=== PATIENT | male | born 1950 | race Hispanic/Latino ===

== ENCOUNTER 2019-11-13 07:09 | Observation (INO) | payer MEDICARE, OTHER ==
[2019-11-08 12:08] LABS: BASOPHILS # (AUTO) 0.1 (0.0-0.1); EOSINOPHILS # (AUTO) 0.3 (0.0-0.4); EOSINOPHILS % 4.5 % (0.0-6.0); HEMATOCRIT 46.9 % (38.2-49.6); HEMOGLOBIN 15.4 g/dL (14.0-18.0); LYMPHOCYTES # (AUTO) 1.9 (1.0-3.2); MEAN CORPUSCULAR HEMOGLOBIN 29.3 pg (28-32); MEAN CORPUSCULAR HGB CONC 32.8 g/dL (31-35); MEAN CORPUSCULAR VOLUME 89.3 fL (81-99); MONOCYTES # (AUTO) 0.5 (0.2-0.8); NEUTROPHILS # (AUTO) 4.4 (2.1-6.9); NEUTROPHILS % 60.9 % (38.7-80.0); PLATELET COUNT 153 x10e3/uL (140-360); RED BLOOD COUNT 5.25 x10e6/uL (4.3-5.7); RED CELL DISTRIBUTION WIDTH 13.2 % (11.7-14.4)
--- NOTE | 2019-11-08 12:22 | Diagnostic Imaging Report ---
EXAMINATION: PA and lateral views of the chest. COMPARISON: None CLINICAL HISTORY: Preop prostate DISCUSSION: Lines/tubes: None. Lungs: The lungs are well inflated and clear. There is no evidence of pneumonia or pulmonary edema. Pleura: There is no pleural effusion or pneumothorax. Heart and mediastinum: Cardiomediastinal silhouette is unremarkable. Pulmonary vasculature is normal. Bones and soft tissues: No acute bony abnormalities. Age indeterminate compression deformity of an upper lumbar vertebral body. IMPRESSION: No acute cardiopulmonary abnormalities. Signed by: Dr. Pablo Coronado M.D. on 11/08/2019 12:19 PM
[2019-11-08 12:36] LABS: ALANINE AMINOTRANSFERASE 74 IU/L (0-55); ALBUMIN 3.9 g/dL (3.5-5.0); ALKALINE PHOSPHATASE 75 IU/L (40-150); ANION GAP 16.2 mmol/L (8-16); BLOOD UREA NITROGEN 21 mg/dL (7-26); BUN/CREATININE RATIO 19 (6-25); CALCIUM 9.9 mg/dL (8.4-10.2); CARBON DIOXIDE 23 mmol/L (22-29); CHLORIDE 104 mmol/L (98-107); CREATININE, SERUM 1.08 mg/dL (0.72-1.25); EST GLOMERULAR FILTRATION RATE > 60 ML/MIN (60-); GLUCOSE 187 mg/dL (74-118); POTASSIUM 4.2 mmol/L (3.5-5.1); SODIUM 139 mmol/L (136-145)
[~2019-11-13] VITALS: Ht 157.5 cm; Wt 63.0 kg
[~2019-11-13 07:09] MED LIST: SYNJARDY 12.5-1 EACH PO
[2019-11-13] MEDS ORDERED: CEFAZOLIN SOD 1 GM/NS 50ML 100 ML IV ONE (08:00)
[2019-11-13] MEDS ORDERED: INSULIN REGULAR, HUMAN 100 UNIT/1 ML 3ML VIAL ONE (08:37)
[2019-11-13] MEDS ORDERED: B&O 60MG R/S 60 MG SUPP PR ONE (09:20)
[2019-11-13] MEDS ORDERED: IOPAMIDOL 300MG/ML 50ML INFUS..BTL IV ONE (09:20)
[2019-11-13] MEDS ORDERED: SUGAMMADEX SODIUM 200 MG/2 ML VIAL IV ONE (10:30)
--- OUTSIDE RECORDS SUMMARY | 2019-11-13 11:07 | XMS REPORT | Clinical Summary ---
Author Author [facility] Organization [facility] Address Unknown Phone Unavailable Care Team Providers Care Home Care Physical Therapist Name Role Phone Brian Delarosa MD PCP Allergies No Known Allergies Medications End Date Status Medication Sig Dispensed Refills Start Date Active empagliflozin-metformin Take 1 tablet 30 each 11 (SYNJARDY XR) 12.5-1,000 by mouth 9 mg tablet, IR & ER, daily with biphasic 24hr breakfast. Active pioglitazone (ACTOS) 15 Take 1 tablet 2 MG tablet by mouth 9 daily. 09/11/2019 aspirin (ECOTRIN) 81 MG Take 1 tablet 90 tablet 1 enteric coated tablet (81 mg total) 9 by mouth daily. 12/10/2018 varenicline (CHANTIX ROMERO) Take 0.5 mg 53 tablet 0 0.5 mg (11)- 1 mg (42) one daily on 9 tablet days 1-2 and 0.5 mg twice daily on days 4-7. Then 1 mg twice daily for a total of 12 weeks. 09/20/2019 losartan (COZAAR) 25 MG Take 1 tablet 90 tablet 1 tablet (25 mg total) 9 by mouth daily. 09/20/2019 rosuvastatin (CRESTOR) 10 Take 1 tablet 90 tablet 1 MG tablet (10 mg total) 9 by mouth daily. 12/12/2018 Discontinued (Alternate ther apy) dulaglutide (TRULICITY) Inject 0.75 4 Syringe 11 0.75 mg/0.5 mL pen mg under the 9 injector skin once a week. 12/26/2018 amoxicillin-pot Take 1 tablet 20 tablet 0 12/17/19 1 clavulanate (AUGMENTIN) by mouth 2 9 875-125 mg per tablet (two) times a day for 10 days. Active Problems Problem Noted Date CKD (chronic kidney disease) stage 3, GFR 30-59 ml/mi n 09/12/2018 Type 2 diabetes mellitus with microalbuminuria, witho ut long-term current 09/12/2018 use of insulin Routine general medical examination at a health care facility 09/12/2018 Immunization due 09/11/2018 Microalbuminuria due to type 2 diabetes mellitus Tobacco dependence 09/11/2018 Overview: smoked for 50 years willing to accept t x Deafness in left ear 09/11/2018 Nocturnal enuresis 09/11/2018 Fatty liver 09/11/2018 Calculus of gallbladder without cholecystitis without obstruction 09/11/2018 Influenza vaccination up to date 05/07/2018 Constipation 12/28/2017 Chronic idiopathic anal pain 11/27/2017 Mixed hyperlipidemia 11/27/2017 Benign prostatic hyperplasia without lower urinary tr act symptoms 11/27/2017 Abdominal pain 11/27/2017 Smoker 11/27/2017 Overview: 45 year hx, refuses tx Family history of diabetes mellitus 11/27/2017 Family history of CVA 11/27/2017 Microalbuminuria 06/22/2017 BMI 24.0-24.9, adult 05/21/2017 Prostate cancer screening 05/21/2017 Pneumococcal vaccination administered at current visi t 05/21/2017 History of spinal fracture 05/21/2017 Overview: pt has been on disability 6 years; occu rred when he fell off of truck at the age of 14 but patient is poor histo juanito and unable to elaborate f; not work related Influenza vaccination administered at current visit 05/21/2017 Type 2 diabetes mellitus without complication, withou t long-term current 05/21/2017 use of insulin Overview: dx appx 2012; pt is poor historian; has seen eye doc; will get labs and old records and have him rtc Encounters Care Team Description Date Type Specialty Rajani Lopez MA Nocturnal enuresis (Primary Dx) 07/22/2019 Orders Only Family Medicine Brian Delarosa MD 05/19/2019 Refill Family Medicine Kelly Bravo NP 12/16/2018 Orders Only Family Medicine Kelly Bravo NP Nocturnal enuresis (Primary Dx) 12/12/2018 Office Visit Family Medicine after 11/12/2018 Immunizations Name Administration Dates Next Due FLUZONE HIGH-DOSE PF 09/11/2018, 05/21/2017 Pneumococcal Conjugate 09/11/2018 13-Valent Pneumococcal 05/21/2017 Polysaccharide Family History Medical History Relation Name Comments Cirrhosis Father Stroke Mother Relation Name Status Comments Father Mother Social History Date Tobacco Use Types Packs/Day Years Used Current Every Day Smoker Cigarettes 1 Smokeless Tobacco: Never Used Drinks/Week oz/Week Comments Alcohol Use Yes Sex Assigned at Date Recorded Not on file Industry Job Start Date Occupation Not on file Not on file Not on file Travel End Travel History Travel Start No recent travel history available. Last Filed Vital Signs Reading Time Taken Comments Vital Sign 111/68 12/12/2018 3:55 PM CDT Blood Pressure 79 12/12/2018 3:55 PM CDT Pulse 36.9 C (98.4 F) 12/12/2018 3:55 PM CDT Temperature - - Respiratory Rate 95% 12/12/2018 3:55 PM CDT Oxygen Saturation - - Inhaled Oxygen Concentration 65.1 kg (143 lb 9.6 oz) 12/12/2018 3:55 PM CDT Weight - - Height 25.04 09/20/2018 8:12 AM CDT Body Mass Index Plan of Treatment Health Maintenance Due Date Last Done Comments DIABETIC FOOT EXAM 1962 SHINGLES VACCINES (#1) 2002 INFLUENZA VACCINE 01/17/2020 09/11/2018, 04/23/2018, 05/21/2017 DIABETIC RETINAL EYE EXAM 12/09/2020 12/09/2018, 12/05/2017 65+ PNEUMOCOCCAL VACCINE 05/21/2022 09/11/2018, (2 of 2 - PPSV23) 05/21/2017 COLONOSCOPY SCREENING 08/04/2023 08/04/2013 Procedures Comments Procedure Name Priority Date/Time Associated Diag nosis URINALYSIS, COMPLETE, Routine 12/12/2018 WITH REFLEX TO CULTURE 4:37 PM CDT PROSTATE SPECIFIC ANTIGEN Routine 12/12/2018 Noct urnal enuresis 4:37 PM CDT URINE CULTURE Routine 12/12/2018 4:37 PM CDT after 11/12/2018 Results * URINALYSIS, COMPLETE, WITH REFLEX TO CULTURE (12/12/2018 4:37 PM CDT) Color, UA YELLOW YELLOW [facility] Appearance CLEAR CLEAR [facility] Specific 1.028 1.001 - 1.035 [facility] gravity, urine [facility] pH, urine 6.5 5.0 - 8.0 [facility] Glucose, urine 3+ (A) NEGATIVE [facility] Bilirubin, UA NEGATIVE NEGATIVE [facility] Ketones, UA NEGATIVE NEGATIVE [facility] Occult blood, TRACE (A) NEGATIVE [facility] Protein, UA NEGATIVE NEGATIVE [facility] Nitrite, UA POSITIVE (A) NEGATIVE [facility] Leukocyte 2+ (A) NEGATIVE [facility] esterase, [facility] WBC, UA > OR = 60 (A) < OR = 5 /HPF [facility] RBC, UA NONE SEEN < OR = 2 /HPF [facility] Squamous NONE SEEN < OR = 5 /HPF [facility] epithelial [facility]NOST[facility] cells, [facility]A [facility] Bacteria, UA MANY (A) NONE SEEN /HPF [facility] Hyaline casts, NONE SEEN NONE SEEN /LPF [facility] UA [facility] Reflex CULTURE INDICATED - RESULTS TO [facility] Specimen Resulting Agency Comment Performing Organization Information: Site ID: [id number] Name: [facility] Address: [address] [place] [id number] Director: Morelia Hernández Performing Organization Address City/State/Zipcode Ph one Number [facility] [address] [phone] * Urine culture (12/12/2018 4:37 PM CDT) Source URINE [facility] Status FINAL [facility] Bacterial ID SEE NOTE (A) [facility] isolate, Comment: DIAGNOSTICS sterility Greater than 100,000 CFU/mL of [place] N Escherichia coli (ESBL) E.coli (ESBL) INT JULIETA AMOX/CLAVULANATE S 8 AMPICILLIN R >=32 1 AMP/SULBACTAM S 8 CEFAZOLIN R >=64 2 CEFEPIME S 2 CEFTRIAXONE R >=64 CIPROFLOXACIN R >=4 GENTAMICIN S <=1 IMIPENEM S <=0.25 LEVOFLOXACIN R >=8 NITROFURANTOIN S <=16 PIP/TAZOBACTAM S <=4 TOBRAMYCIN S <=1 TRIMETHOPRIM/SULFA S <=20 ESBL RESULT: * 3 Legend: S = Susceptible I = Intermediate R = Resistant NS = Not susceptible * = Not tested NR = Not reported NN = See antimicrobic comments THERAPY COMMENTS Note 1: Extended spectrum beta-lactamase (ESBL) producing organisms demonstrate decreased activity with penicillins, cephalosporins and aztreonam. Note 2: For uncomplicated UTI caused by E. coli, K. pneumoniae or P. mirabilis: Cefazolin is susceptible if JULIETA <32 mcg/mL and predicts susceptible to the oral agents cefaclor, cefdinir, cefpodoxime, cefprozil, cefuroxime, cephalexin and loracarbef. Note 3: The organism has been confirmed as an ESBL assistant producer. Specimen Resulting Agency Comment Performing Organization Information: Site ID: [id number] Name: [facility] Address: [address] [place] [phone] Director: Morelia Hernández Performing Organization Address [facility] [place] [phone] * Prostate specific antigen (12/12/2018 4:37 PM CDT) PSA 1.4 < OR = 4.0 ng/mL [facility] Comment: DIAGNOSTICS The total PSA value from this [facility] assay system is standardized against the WHO standard. The test result will be approximately 20% lower when compared to the equimolar-standardized total PSA (Wilman Juvenal). Comparison of serial PSA results should be interpreted with this fact in mind. This test was performed using the Siemens chemiluminescent method. Values obtained from different assay methods cannot be used interchangeably. PSA levels, regardless of value, should not be interpreted as absolute evidence of the presence or absence of disease. Specimen Blood Resulting Agency Comment Performing Organization Information: Site ID: [id number] Name: [facility] Address: [address] [place] [id number] Director: Morelia Hernández Performing Organization Address [facility] one Number [facility] [place] [phone] after 11/12/2018 Insurance Type Payer Benefit Subscriber ID Effective Phone Address Plan / Dates Group O [employer] C[employer] xxxxxxxxxxx 2017- [employer] Present [facility] AD[facility] Advance Directives For more information, please contact: [phone] Patient Transportation Supervisor Explanation Type Date Recorded Advance Directives, 01/10/2016 12:05 PM Living Will and Medical Power of [place] Operator [id number] Advance Directives, 01/18/2016 10:45 AM Living Will and Medical Power of [place] Operator
--- OUTSIDE RECORDS SUMMARY | 2019-11-13 11:08 | XMS REPORT ---
Author Author [facility] t Organization [facility] Address [address] [place] [address] Phone Unavailable Care Team Providers Care Drapery Supervisor Name Role Phone [place] TEIXEIRA, Brian PCP Clifton LALA Attphys Unavailable John JOHN, Rajani Attphys Unavailable [place] TEIXEIRA, Brian Attphys Lawrence REGISTERED NURSE FIRST ASSISTANT, Binh Mendoza Attphys Payers Payer Name Policy Type Policy Number Effective Date Expiration Date Deisy nova [facility] ADVxxxxxx /18/2016-PresentO xxxxxxxxxxx 2017 00:00:00 Vincent Pendleton odist Problems Condition Name Condition Details Condition Category Status Onset Date Resolution Date Last Treatment Date Treating Clinician Comments Source CKD (chronic kidney disease) stage 3, GFR 30-59 ml/min CKD (chronic kidney disease) stage 3, GFR 30-59 ml/min Disease Active 2018-09-12 00:00:00 Vincent Brothers Type 2 diabetes mellitus with microalbum inuria, without long-term current use of insulin Type 2 diabetes mellitus with microalbum inuria, without long-term current use of insulin Disease Active 2018-09-12 00:00:00 Vincent Brothers Routine general medical examination at a health care f acility Routine general medical examination at a health care facility Disease Active 2018-09-12 00:00:[address] Immunization due Immunization due Disease Active 2018-09-11 00:00:00 Vincent Brothers Microalbuminuria due to type 2 diabetes mellitus Micro albuminuria due to type 2 diabetes mellitus Disease Active 2018-09-11 00:00:00 Vincent Brothers Tobacco dependence Tobacco dependence Disease Active 2018-09-11 00:00:0 0 Overview: smoked for 50 years willing to accept tx Vincent Brothers 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 Disease Active 00:00:00 Vincent Brothers Nocturnal enuresis Nocturnal enuresis Disease Active 2018-09-11 00:00:0 0 Vincent Brothers Fatty liver Fatty liver Disease Active 2018-09-11 00:00:00 Vincent Brothers Calculus of gallbladder without cholecystitis without obstruction Calculus of gallbladder without cholecystitis without obstruction Disease Active 2018-09-11 00:00:00 Vincent zepeda Influenza vaccination up to date Influenza vaccination up to ayden e Disease Active 2018-05-07 00:00:00 [place] Constipation Constipation Disease Active 2017-12-28 00:00:00 Vincent Brothers Chronic idiopathic anal pain Chronic idiopathic anal pain Disease Active 2017-11-27 00:00:00 Vincent Brothers Mixed hyperlipidemia Mixed hyperlipidemia Disease Active 00:00:00 Vincent Brothers Benign prostatic hyperplasia without lower urinary tra ct symptoms Benign prostatic hyperplasia without lower urinary tract symptoms Disease A ctive 2017-11-27 00:00:00 Vincent Brothers Abdominal pain Abdominal pain Disease Active 2017-11-27 00:00:00 Vincent Brothers Smoker Smoker Disease Active 2017-11-27 00:00:00 Overview: 45 year hx, refuses tx Vincent Brothers Family history of diabetes mellitus Family history of diabetes m ellitus Disease Active 2017-11-27 00:00:00 Lupis Brothers Family history of CVA Family history of CVA Disease Active 201 01-22-12 00:00:00 Vincent mederos Microalbuminuria Microalbuminuria Disease Active 2017-06-22 00:00:00 Vincent Brothers BMI 24.0-24.9, adult BMI 24.0-24.9, adult Disease Active 00:00:00 Vincent Brothers Prostate cancer screening Prostate cancer screening Disease Ac tive 2017-05-21 00:00:00 Vincent zepeda Pneumococcal vaccination administered at current visit Pneumococcal vaccination administered at current visit Disease Active 2017-05-21 00:00:00 Vincent Brothers History of spinal fracture History of spinal fracture Disease Active 2017-05-21 00:00:00 Overview: pt has been on disability 6 years; occurred when he fell off of truck at the age of 14 but patient is poor historian and unable to elaborate f; not work related Vincent Brothers Influenza vaccination administered at current visit In fluenza vaccination administered at current visit Disease Active 2017-05-21 00:00:00 Vincent Brothers Type 2 diabetes mellitus without complic ation, without long-term current use of insulin Type 2 diabetes mellitus without complic ation, without long-term current use of insulin Disease Active 2017-05-21 00:00:00 Overview: dx appx 2012; pt is poor historian; has seen eye doc; will get labs and old records and have him rtc Vincent Brothers Allergies, Adverse Reactions, Alerts This patient has no known allergies or adverse reactions. Family History Family Member Diagnosis Comments Start Date Stop Date Source Natural father Cirrhosis [facility] Natural [facility] Social History Social Habit Start Date Stop Date Quantity Comments Source History of tobacco use Cigarette Smoker Vincent Brothers Sex Assigned At Cathy Brothers Cigarettes smoked current (pack per day) - Reported 00:00:00 2018-12-12 00:00:00 Vincent Brothers Alcohol intake 2018-12-12 00:00:00 2018-12-12 00:00:00 Current drinker of alcohol (finding) Vincent Brothers Smoking Status Start Date Stop Date Source Current every day smoker 2018-12-12 00:00:00 Cathy Brothers Medications Ordered Medication Name Filled Medication Name Start Date Stop Da te Current Medication? Ordering Clinician Indication Dosage Frequency Signature (SIG) Comments Components Source amoxicillin-pot clavulanate (AUGMENTIN) 875-125 mg per table t 2018-12-16 00:00:00 2018-12-26 23:59:00 No 1{tbl} Q.5D Take 1 tablet by mouth 2 (two) times a day for 10 days. Vincent zepeda pioglitazone (ACTOS) 15 MG tablet 2018-10-18 00:00:00 Yes 1{tbl} QD Take 1 tablet by mouth daily. Vincent zepeda empagliflozin-metformin (SYNJARDY XR) 12 .5-1,000 mg tablet, IR & ER, biphasic 24hr 2018-09-20 00:00:00 Yes 1{tbl} QD Take 1 tablet by mouth daily with breakfast. Vincent Brothers losartan (COZAAR) 25 MG tablet 2018-09-20 00:00:00 2019-09-20 23 :59:00 No 25mg QD Take 1 tablet (25 mg total) by mouth daily. Vincent Brothers rosuvastatin (CRESTOR) 10 MG tablet 2018-09-20 00:00:0 0 2019-09-20 23:59:00 No 10mg QD Take 1 tablet (10 mg total) by mouth emanuel ly. Vincent Brothers dulaglutide (TRULICITY) 0.75 mg/0.5 mL pen injector 2018-09-20 00:00:00 2018-12-12 00:00:00 No .75mg Q7D Inject 0.7 5 mg under the skin once a week. Vincent Brothers aspirin (ECOTRIN) 81 MG enteric coated tablet 20 03-09-26 00:00:00 2019-09-11 23:59:00 No 81mg QD Take 1 tablet (81 mg total) by mouth daily. Vincent Brothers varenicline (CHANTIX ROMERO) 0.5 mg (11)- 1 mg (42) tablet 2018-09-11 00:00:00 2018-12-10 23:59:00 No Take 0.5 mg one daily on days 1-2 and 0.5 mg twice daily on days 4-7. Then 1 mg twice daily for a total of 12 weeks. Vincent Brothers Immunizations Ordered Immunization Name Filled Immunization Name Date Status Comments Source FLUZONE HIGH-DOSE PF 2018-09-11 00:00:00 Completed Vincent Brothers Pneumococcal Conjugate 13-Valent 2018-09-11 00:00:00 Compl eted Vincent Brothers FLUZONE HIGH-DOSE PF 2017-05-21 00:00:00 Completed Vincent Brothers Pneumococcal Polysaccharide 2017-05-21 00:00:00 Completed Vincent Brothers Vital Signs Vital Name Observation Time Observation Value Comments Source Systolic blood pressure 2018-12-12 15:55:00 111 mm[Hg] Vincent Brothers Diastolic blood pressure 2018-12-12 15:55:00 68 mm[Hg] Vincent Brothers Heart rate 2018-12-12 15:55:00 79 /min Vincent Brothers Body temperature 2018-12-12 15:55:00 36.89 [place] Body weight 2018-12-12 15:55:00 65.137 kg Vincent Brothers BMI 2018-12-12 15:55:00 25.04 kg/m2 Vincent Brothers Oxygen saturation in Arterial blood by Pulse oximetry 12-12 15:55:00 95 /min Vincent Brothers Procedures Procedure Date / Time Performed Performing Clinician Sour e URINE CULTURE 2018-12-12 16:37:00 Kelly Bravo PROSTATE SPECIFIC ANTIGEN 2018-12-12 16:37:00 Kelly Bravo and Vincent Brothers URINALYSIS, COMPLETE, WITH REFLEX TO CULTURE 2018-12-12 16:3 7:00 Kelly Bravo Plan of Care Planned Activity Planned Date Details Comments Source Future Scheduled Test 2023-08-04 00:00:00 COLONOSCOPY SCREEN ING [code = COLONOSCOPY SCREENING] [facility] Future Scheduled Test 2022-05-21 00:00:00 65+ PNEUMOCOCCAL V ACCINE (2 of 2 - PPSV23) [code = 65+ PNEUMOCOCCAL VACCINE (2 of 2 - PPSV23)] [facility] Future Scheduled Test 2020-12-09 00:00:00 DIABETIC RETINAL E YE EXAM [code = DIABETIC RETINAL EYE EXAM] [facility] Future Scheduled Test 2020-01-17 00:00:00 INFLUENZA VACCINE [code = INFLUENZA VACCINE] [facility] Future Scheduled Test 2002 00:00:00 SHINGLES VACCINES (#1) [code = SHINGLES VACCINES (#1)] [facility] Future Scheduled Test 1962 00:00:00 DIABETIC FOOT EXAM [code = DIABETIC FOOT EXAM] [facility] Results Test Description Test Time Test Comments Results Result Comments Source CHEST 2 VIEWS 2019-11-08 12:18:00 [facility] [address] [place] [address] Patient Name: DONTAE RIVERA MR #: [id number] : 1950 Age/Sex: 68/M Req #: [id number] Adm Physician: Ordered by: FRANKLIN LALA MD Report #: [id number] Location: OR Room/Bed: Procedure: [id number] DX/CHEST 2 VIEWS Exam Date: Exam Time: REPORT STATUS: Signed EXAMINATION: PA and lateral views of the chest. COMPARISON: None CLINICAL HISTORY: Preop prostate DISCUSSION: Lines/tubes: None. Lungs: The lungs are well inflated and clear. There is no evidence of pneumonia or pulmonary edema. Pleura: There is no pleural effusion or pneumothorax. Heart and mediastinum: Cardiomediastinal silhouette is unremarkable. Pulmonary vasculature is normal. Bones and soft tissues: No acute bony abnormalities. Age indeterminate compression deformity of an upper lumbar vertebral body. IMPRESSION: No acute cardiopulmonary abnormalities. Signed by: Dr. Pablo Cardoza M.D. on 11/08/2019 12:19 PM Dictated By: PABLO CARDOZA MD 18 Transcribed By: CAESAR on 11/08/199 COPY TO: FRANKLIN LALA MD Prostate specific antigen 2018-12-14 18:45:00 Test Item PSA (test code = 2857-1) 1.4 ng/mL < OR = 4.0 The total PSA value from this assay system is standardized against the WHO standard. The test result will be approximately 20% lower when compared to the equimolar-standardized total PSA ([place]). Comparison of serial PSA results should be interpreted with this fact in mind. This test was performed using the Siemens chemiluminescent method. Values obtained from different assay methods cannot be usedinterchangeably. PSA levels, regardless ofvalue, should not be interpreted as absoluteevidence of the presence or absence of disease. RAC (test code = RAC) Performing Organization Info rmation: Site ID: RGA Name: [facility] Address: [address] [place] [phone] Director: Morelia Short [id number] 18:45:00* Test Item Value Reference Range Interpretation Comments Source (test code = 28382-4) URINE Status (test code = 8251-1) FINAL Bacterial ID isolate, sterility (test code = 53500-7) SEE NOTE A Greater than 100,000 CFU/mL ofEscherichia coli (ESBL) E.coli (ESBL) INT JULIETA AMOX/CLAVULANATE S 8 AMPICILLIN R >=32 1 AMP/SULBACTAM S 8 CEFAZOLIN R >=64 2 CEFEPIME S 2 CEFTRIAXONE R >=64 CIPROFLOXACIN R >=4 GENTAMICIN S <=1 IMIPENEM S <=0.25 LEVOFLOXACIN R >=8 NITROFURANTOIN S <=16 PIP/TAZOBACTAM S <=4 TOBRAMYCIN S <=1 TRIMETHOPRIM/SULFA S <=20 ESBL RESULT: * 3Legend:S = Susceptible I = IntermediateR = Resistant NS = Not susceptible* = Not tested NR = Not reportedNN = See antimicrobic commentsTHERAPY COMMENTS Note 1: Extended spectrum beta- lactamase (ESBL) producing organisms demonstrate decreased activity with penicillins, cephalosporins and aztreonam. Note 2: For uncomplicated UTI caused by E. coli, K. pneumoniae or P. mirabilis: Cefazolin is susceptible if JULIETA <32 mcg/mL and predicts susceptible to the oral agents cefaclor, cefdinir, cefpodoxime, cefprozil, cefuroxime, cephalexin and loracarbef. Note 3: The organism has been confirmed as an ESBL reproducer. MERRITT (test code = MERRITT) Performing Organization Info rmation: Site ID: RGA Name: [facility] Address: [address] [place] [id number] Director: Morelia Hernández Lab Interpretation (test code = 24849-2) Abnormal [place] [facility], WITH REFLEX TO [id number] 18:45:00 * Test Item Value Reference Range Interpretation Comments Color, UA (test code = 5778-6) YELLOW YELLOW Appearance (test code = 5767-9) CLEAR CLEAR Specific gravity, urine (test code = 5811-5) 1.028 1.001-1.0 35 pH, urine (test code = 5803-2) 6.5 5.0-8.0 Glucose, urine (test code = 69324-2) 3+ NEGATIVE A Bilirubin, UA (test code = 5770-3) NEGATIVE NEGATIVE Ketones, UA (test code = 2514-8) NEGATIVE NEGATIVE Occult blood, urine (test code = 5794-3) TRACE NEGATIVE A Protein, UA (test code = 42948-7) NEGATIVE NEGATIVE Nitrite, UA (test code = 5802-4) POSITIVE NEGATIVE A Leukocyte esterase, UA (test code = 5799-2) 2+ NEGATIVE A WBC, UA (test code = 5821-4) > OR = 60 < OR = 5 /HPF A RBC, UA (test code = 31585-8) NONE SEEN < OR = 2 /HPF Squamous epithelial cells, UA (test code = 30330-7) NONE SEEN < OR = 5 /HPF Bacteria, UA (test code = 5769-5) MANY NONE SEEN /HPF A Hyaline casts, UA (test code = 5796-8) NONE SEEN NONE SEEN /LPF Reflex (test code = 630-4) CULTURE INDICATED - RESULTS TO FOLLOW RAC (test code = RAC) Performing Organization Info rmation: Site ID: RGA Name: [facility] Address: [address] [place] [id number] Director: Morelia Hernández Lab Interpretation (test code = 26014-4) Abnormal Vincent Brothers
--- OUTSIDE RECORDS SUMMARY | 2019-11-13 11:08 | XMS REPORT ---
Author Author Admin, [facility] Address [address] [address] Phone Allergies, Adverse Reactions, Alerts Allergy Name Reaction Description Start Date Severity Status Pr ovider No Known Allergies Rama Zamarripa MA Conditions or Problems Problem Name Problem Code Onset Date Status Entry Date Provider Comment Standard Description Annotate Colon cancer screening V76.51 Active Kristine sparks MD Screening for malignant neoplasms of colon CONSTIPATION 564.00 Active Krisitne Pratt MD Constipation, unspecified Chronic back pain 724.5 Active Kristine Michelle Backache, unspecified DIABETES MELLITUS, TYPE II 250.00 Active 8 Kristine Pratt MD Diabetes mellitus without me ntion of complication, type II or unspecified type, not stated as uncontrolled GERD 530.81 Active Kristine Pratt MD Esophageal reflux Hyperlipidemia 272.4 Active Kristine Pratt MD Other and unspecified hyperlipidemia Shoulder pain, right 719.41 Active Kristine wynn MD Pain in joint involving shoulder region Medication List Medication Instructions Start Date Stop Date Generic Name NDC Status Provider Patient Instruction ATORVASTATIN CALCIUM 20 MG ORAL TABLET one tablet once daily 01/12 ATORVASTATIN CALCIUM 22602436141 Active Kristine fitzpatrick WADE CONTOUR MONITOR W/DEVICE KIT Use to test blood glucose lev els BLOOD GLUCOSE MONITORING SUPPL 37186051292 Active Heather benavides CPHT Active WADE CONTOUR TEST IN VITRO STRIP use for glucose monitiorin g once a day GLUCOSE BLOOD 55538220293 Active Heather Galloway CPHT Active FAMOTIDINE 20 MG ORAL TABLET one tablet by mouth daily FAMOTIDINE 87397165351 Active Kristine Pratt MD Active LANCETS Dispense for use in checking fasting blood sugar and 2 hour postprandial bloodsugar three times per day LANCETS 35631723133 Acti ve Kristine Pratt MD Active LISINOPRIL 5 MG ORAL TABLET 1 by mouth every day LISINOPRIL 44813634209 Active Kristine Pratt MD Active METFORMIN HCL ER 500 MG ORAL TABLET EXTENDED RELEASE 2 4 HOUR one tablet twice daily METFORMIN HCL 44719116436 Active Kristine Pratt MD Active Vital Signs Date Name Value Unit Range Description blood pressure, diastolic 79 mm[Hg] BP melendez blood pressure, systolic 126 mm[Hg] BP sys height E&M 62 [in_us] Bdy height pulse rate E&M 66 /min Heart rate respiratory rate E&M 19 /min Resp rate temperature E&M 98.3 [degF] Body temp erature weight E&M 136.80 [lb_av] Weight Measure d blood pressure, diastolic 80 mm[Hg] BP melendez blood pressure, systolic 131 mm[Hg] BP sys height E&M 62 [in_us] Bdy height pulse rate E&M 67 /min Heart rate respiratory rate E&M 17 /min Resp rate temperature E&M 98.3 [degF] Body temp erature weight E&M 136.20 [lb_av] Weight Measure d Diagnostic Results Date Name Value Unit Range Description Lab Report: Comp. Metabolic Panel (14), Lipid Panel, Microalb/Creat Rati ... - Chemistry calcium, serum 9.2 mg/dL 8.6-10.2 Lab Report: Comp. Metabolic Panel (14), Lipid Panel, Microalb/Creat Rati ... - Urinalysis microalbumin/total urine volume 86.4 mg/L Not Estab. Lab Report: Comp. Metabolic Panel (14), Lipid Panel, Microalb/Creat Rati ... - Chemistry urea nitrogen, blood 18 mg/dL 8-27 urea nitrogen/creatinine ratio, serum 20 10-24 Lab Report: Comp. Metabolic Panel (14), Lipid Panel, Microalb/Creat Rati ... - Genetics/fertility eGFR if 104 mL/min/1.73m2 >59 Lab Report: Comp. Metabolic Panel (14), Lipid Panel, Microalb/Creat Rati ... - Chemistry creatinine, serum 0.90 mg/dL 0.76-1.27 chloride, serum 99 mmol/L 96-106 triglyceride, serum, fasting 274 mg/dL 0-149 Estimated Glomerular Filtration Rate (calc) 90 mL/ min/1.73m2 >59 carbon dioxide, venous blood 25 mmol/L 18-29 protein, total, serum 7.1 g/dL 6.0-8.5 sodium, serum 138 mmol/L 084-890 4744/07/28 HDL cholesterol, serum 37 mg/dL >39 hemoglobin A1C, blood, as % of total hemoglobin 7.2 % 4.8-5.6 Office Visit: Adult Followup [address] - Chemistry blood glucose, fasting 146 mg/dL Lab Report: Comp. Metabolic Panel (14), Lipid Panel, Microalb/Creat Rati ... - Chemistry albumin/globulin ratio, serum 1.6 1.2-2. 2 alkaline phosphatase, serum 76 U/L 39-117 microalbumin/creatinine ratio, urine 97.1 MG/G CREAT ug/mg 0.0-30.0 alanine aminotransferase (SGPT), serum 21 U/L 0-44 LDL cholesterol, serum 113 mg/dL 0-99 cholesterol, serum 205 mg/dL 757-774 7905/07/28 bilirubin, serum, total 0.3 mg/dL 0.0-1.2 creatinine, random, urine 89.0 mg/dL Not Estab. potassium, serum 4.5 mmol/L 3.5-5.2 blood glucose, random 134 mg/dL 65-99 globulin, serum 2.7 1.5-4.5 aspartate aminotransferase (SGOT), serum 13 U/L 0-40 albumin, serum 4.4 g/dL 3.6-4.8 very low density lipoproteins 55 mg/dL 5-40 Encounters Date Encounter Provider Code Facility 09:19:19 CDT Est Patient Exp Problem - 90288 Kristine Pratt MD CPT-46669 [facility] 12:21:07 CDT New Patient Detailed - 56413 Kristine sparks MD CPT-27333 [facility]
--- NOTE | 2019-11-13 11:26 | NUR ---
Pt received from PACU at this time. Pt is aox3, a little forgetful. 0 s/s of acute distress noted at this time. Pt has a hirsch catheter size 22Fr/30ml with light pink clear urine. Denies any pain at this time.
[2019-11-13 11:43] VITALS: BP 154/77
[2019-11-13] MEDS ORDERED: B&O 60MG R/S 60 MG SUPP PR PRN (11:45)
[2019-11-13] MEDS: SODIUM CHLORIDE 0.9% 1000ML 1,000 ML IV SCH ×2 (12:05→19:46)
[2019-11-13 12:21] VITALS: BP 154/77
[2019-11-13 12:39] VITALS: BP 154/77
[2019-11-13] MEDS ORDERED: METFORMIN HCL 500 MG TAB PO SCH (13:15)
[2019-11-13] MEDS ORDERED: DEXTROSE 50% SYRINGE 50 ML IV PRN (13:15)
[2019-11-13] MEDS ORDERED: PROPOFOL IV EMULSION 10 MG/ML 20 ML VIAL ONE (15:45)
[2019-11-13] MEDS ORDERED: LIDOCAINE HCL 2% LOCAL INJ 5 ML SDV VIAL INJ ONE (15:45)
[2019-11-13] MEDS ORDERED: GLYCOPYRROLATE INJ 0.2 MG/ML VIAL ONE (15:45)
[2019-11-13] MEDS ORDERED: ONDANSETRON HCL INJ 2MG/ML 2ML 2 MG/ML VIAL ONE (15:45)
[2019-11-13] MEDS ORDERED: ROCURONIUM BROMIDE 10 MG/ML 5ML VIAL IV ONE (15:45)
[2019-11-13] MEDS ORDERED: SEVOFLURANE INHAL SOLN 250 ML PEN BTL ONE (15:45)
[2019-11-13] MEDS ORDERED: DEXAMETHASONE SOD PHOS INJ 4 MG/ML VIAL ONE (15:45)
[2019-11-13] MEDS ORDERED: NEOSTIGMINE 1 MG/ML 10ML VIAL ONE (15:45)
[2019-11-13] MEDS ORDERED: ACETAMINOPHEN 1000 MG/100 ML IV ONE (15:45)
[2019-11-13 16:16] VITALS: BP 135/70
[2019-11-13] MEDS: METFORMIN HCL 500 MG TAB PO SCH (16:50)
[2019-11-13] MEDS: INSULIN REGULAR, HUMAN 100 UNIT/1 ML 3ML VIAL SQ SCH ×2 (16:51→20:43)
--- NOTE | 2019-11-13 18:11 | Operative Report ---
DATE OF PROCEDURE: 11/13/2019 SURGEON: Eduard Schwartz MD PREOPERATIVE DIAGNOSES: BPH and urinary retention. POSTOPERATIVE DIAGNOSES: BPH and urinary retention. OPERATION PERFORMED: Urethral dilatation, cystourethroscopy, and transurethral resection of the prostate, redo. ANESTHESIOLOGIST: Staff. ANESTHESIA: General. FINDINGS: The patient had a soft urethral stenosis, dilated to a size 28 Pilar sound. Cystoscopy showed trabeculation of the bladder and regrowth of the left side of the prostate with concretions and small stones on the surface of the prostate. There were also concretions within the bladder. PROCEDURE IN DETAIL: With the patient under satisfactory general anesthesia, the patient was placed in the supine position on the operating table. Legs were placed on stirrups. Genitalia was then prepped with Betadine soap and solution and draped in usual manner. Dilatation of the urethra was done to the Pilar sounds 28. A 22-Sudanese cystourethroscope with a 12-degree angle lens was passed into the bladder. Inspection was performed. At this point, a resectoscope was placed in continuous flow and resection was done from bladder neck to verumontanum. A thick ring noticed as the tissue was cut on the bladder neck. Once that was done, the Extenda-Dent evacuator was used to remove the prostatic chips from the bladder. Also, the button electrode was used to control hemostasis. Harrington catheter was then placed into the bladder. Bladder was irrigated until the return was clear and the patient was taken to recovery room in satisfactory condition after B and O suppository was placed in the rectum. Once that was done and accomplished, then the patient was taken to the recovery room in satisfactory condition. DISCHARGE INSTRUCTIONS: The patient is to stay overnight for observation. If he met discharge criteria, he will be sent home the next day. He was given tramadol for pain and Keflex antibiotic to take twice a day. He will be seen in my office within four days to remove the Harrington catheter and give him a voiding trial. The patient had denied having had a prostate surgery, but he has had previous prostate surgery as verified by CT scan and by cystoscopy. The patient had regrowth on the left side, but I discussed with the patient was that he is forgetful. He may very well have already setting Alzheimer's and he may not be able to urinate normally, although we hope that he can empty his bladder better because he was having 240 and 260 mL residual as we checked in the office. If the patient has to stay an extra night, then I will dictate a separate discharge. MD AD Rowland/MODL /[id number]
--- NOTE | 2019-11-13 19:30 | NUR ---
received report from day nurse. patient is resting comfortably in the bed. bed is in the lowest position and call light is within reach. will continue to monitor patient.
[2019-11-13 20:00] VITALS: BP 133/70
[2019-11-14] VITALS: BP 119/66
[2019-11-14 00:09] VITALS: BP 133/70
[2019-11-14] MEDS: SODIUM CHLORIDE 0.9% 1000ML 1,000 ML IV SCH (03:45)
[2019-11-14 04:00] VITALS: BP 122/75
--- NOTE | 2019-11-14 06:42 | NUR ---
patient is resting in the bed, bed is in lowest position and call light is within reach.
--- NOTE | 2019-11-14 07:09 | NUR ---
AAOX3. ACYANOTIC. RESTING IN BED. NO DISTRESS NOTED. CALL LIGHT IN REACH. SIDE RAILS UP X2. BED LOW.
[2019-11-14] MEDS: INSULIN REGULAR, HUMAN 100 UNIT/1 ML 3ML VIAL SQ SCH (07:30)
[2019-11-14] MEDS ORDERED: KEFLEX250 MG PO (07:43)
[2019-11-14] MEDS ORDERED: ULTRAM50 MG PO (07:44)
[2019-11-14 08:00] VITALS: BP_SYST 106; BP_SYST 140; BP_DIAS 64; BP_DIAS 78
--- NOTE | 2019-11-14 08:46 | NUR ---
URINE COLOR CHANGE NOTED AFTER DISCHARGE PAPER WORK SIGNED AND DR. LALA NOTIFIED. PHYSICIAN ORDERED BLADDER IRRIGATION AND TO DISCHARGE PATIENT IF THERE ARE NO CLOTS.
[2019-11-14] MEDS: METFORMIN HCL 500 MG TAB PO SCH (09:15)
--- NOTE | 2019-11-14 09:26 | NUR ---
COLOR OF URINE IN ALICEA NOW NOTED TO BE CLEAR, YELLOW. NO CLOTS. PROVIDED PATIENT EDUCATION ON URINARY ALICEA CARE. URINE ALICEA CATHETER BAG SWITCHED TO LEG BAG. NO DISTRESS NOTED. PATIENT'S DAUGHTER, MAYCO, NOTIFIED THAT PATIENT IS BEING DISCHARGED. FAMILY MEMBER ON THE WAY TO BRAILLE TRANSCRIBER PATIENT.
== END 2019-11-14 10:55 | disposition home or self-care (01) ==
LOC: OR 07:09 → PACU V 10:41 → MED/SURG 11:27
PROVIDERS: ADMIT Urology; ATTEND Urology
DX: N40.1 Benign prostatic hyperplasia with lower urinary tract symptoms (principal); R33.8 Other retention of urine; R31.0 Gross hematuria; R35.1 Nocturia; R39.12 Poor urinary stream; E11.9 Type 2 diabetes mellitus without complications; Z79.84 Long term (current) use of oral hypoglycemic drugs; F17.210 Nicotine dependence, cigarettes, uncomplicated; N42.0 Calculus of prostate; N21.0 Calculus in bladder; Z01.810 Encounter for preprocedural cardiovascular examination; Z01.812 Encounter for preprocedural laboratory examination; Z01.818 Encounter for other preprocedural examination; Z11.59 Encounter for screening for other viral diseases
CPT/HCPCS: 36415 ×3; 51700; 52630; 71046; 80053; 82948 ×2; 85025; 87086; 87186; 87635; 88305; 93005; C1758; G0378 ×2; J0131; J0690; J1100; J1817; J2001; J2405; J2704; J2710; J7030 ×2